=== PATIENT | female | born 1945 | race Caucasian/White ===

== ENCOUNTER → 2022-08-05 11:25 | Outpatient (CLI) | payer OTHER, SELFPAY ==
[2022-08-05 12:42] LABS: COVID19 -Nasal RAPID Negative (Negative)
== END ==
PROVIDERS: PCP Internal Medicine; Referring Provider Orthopaedic Surgery Orthopaedic Surgery of the Spine; Visit Provider Orthopaedic Surgery Orthopaedic Surgery of the Spine
DX: Z20.822 Contact with and (suspected) exposure to COVID-19 (principal)
CPT/HCPCS: 87635; C9803

== ENCOUNTER 2022-08-07 07:24 | Inpatient (IN) | payer OTHER, SELFPAY ==
[2022-08-05 09:58] VITALS: BMI 28.3
[2022-08-07] VITALS (24 sets, daily range): BP systolic 118–154; BP diastolic 56–85; PULSE 61–104; RESP 7–100; TEMP 35.7–36.9; O2SAT 5–100; BMI 28.3
[2022-08-07] MEDS: LACTATED RINGERS 1,000 ML 84 ML IV ×2 (08:14→10:46)
--- NOTE | 2022-08-07 08:42 | PM.PREOP ---
Pre-operative Note COVID-19 COVID-19 status: Negative Result date/Date tested (Pos, Neg/Pending): 08/06/22 Criteria for continued procedure: Expected advancement of disease process, Possibility delay results in more complex future surgery or treatment, Increased loss of function, Continuing or worsening of significant or severe pain, Deterioration of the patient's condition or overall health and Delay expected to result in less-positive ultimate med/surg outcome Interval Note History & Physical reviewed/Exam performed by Physician: Yes Changes to H&P: No
[2022-08-07] MEDS: CEFAZOLIN 2 GM/100 ML PREMIX 100 ML IV ×2 (08:50→16:31)
--- NOTE | 2022-08-07 09:09 | SUR.OPER ---
Prone on spine table, head in foam head support, padded chest and pelvic supports, gel pad at knees, lower legs supported by pillows; nipples, genitalia and toes free of pressure, arms secured on foam padded arm boards at <90 degrees abduction. Tape over blanket at thigh secured to table. Pt positioned per direction and supervision of Dr Larson.
[2022-08-07] MEDS: BUPIVACAINE 0.5% W/ EPI (PF) 30 ML VIAL INJ (09:13)
[2022-08-07] MEDS: BUPIVACAINE LIPOSOME 266 MG/20 ML VIAL INJ (09:13)
--- NOTE | 2022-08-07 12:09 | DI.RAD.S_ITS ---
PROCEDURE: XR LUMBAR SPINE 2-3V INDICATIONS: L4-L5 TLIF TECHNIQUE: 3 views of the lumbar spine were acquired. COMPARISON: [facility], CT, CT LUMBAR SPINE WITHOUT CONTRAST, 07/09/2022, 11:11. [facility], CR, L-SPINE 2-3 VIEWS, 04/17/2017, 8:37. FINDINGS: L3-S1 pedicle screw fixation with intervertebral body spacers. New pedicle screws at L3. Hardware projects in the expected locations. IMPRESSION: Intraoperative guidance provided. Dictated by: Ten Barnard M.D. on 08/07/2022 at 13:26 Approved by: Ten Barnard M.D. on 08/07/2022 at 13:30
--- NOTE | 2022-08-07 12:27 | P.OP_ITS ---
Operative Date/Time/Diagnoses Date of procedure: 08/07/22 Time of procedure: 08:40 Pre-op diagnosis: 1. L3-4 spinal stenosis with neurogenic claudication 2. History of L4-S1 fusion with instrumentation Post-op diagnosis: same Procedure & Clinicians Procedure: 1. L3-4 posterolateral and posterior interbody fusion 2. L3-4 posterior interbody cage placement 3. L4-5, L5-S1 posterior segmental instrumentation removal 4. L4-5, L5-S1 revision laminectomy with exploration of fusion 5. L3-4, L4-5, L5-S1 posterior segmental instrumentation with pedicle screw placement 6. L4-5 posterolatearl fusion 7. [place] of bone marrow from iliac crest through a separate incision 8. Utilization of microsurgical technique and operating microscope Same procedure as scheduled: Yes Indications: Patient has been having chronic back pain and worsening lumbar radiculopathy and symptoms of neurogenic claudication. Patient failed multiple conservative management with worsening pain weakness and numbness in her lower extremity. Patient has been having difficulty performing activity of daily living. After discussing risks benefits of treatment options, patient elected proceed with surgery. Surgeon: Ashlyn Larson Papier Mache' Molder: Britt Corado Click Yes if Unassisted: No Anesthesia Type: General Operative Notes Closure Type: primary Specimen(s): none sent Prosthetic devices, grafts, tissues, transplants, or devices: Globus revolve screws, Rise cage Applied: catheter Estimated Blood Loss (mL): 100 Blood products transfused: none Procedure in detail: Patient was seen in the preoperative area. Risks and benefits of the surgery was discussed with the patient. Informed consent was obtained from the patient and placed in the chart. Surgical site was marked. Patient was taken to the operative room. General anesthesia was administered. Prophylactic antibiotic was given to the patient less than 30 min before the incision was made. Patient was placed into a prone position on the Rajan table. Patient's back was then prepped and draped in the sterile fashion. Time-out was performed at this time. Using patient's previous scar incision was made over the L3-4 L4-5 L5-S1 interval on the right side. Fascia was incised in line with skin incision. Patient's previously placed hardware over the L4-5, L5-S1 level was identified by dissecting down to the level the hardware using a Bovie and a Moore. The locking caps which was removed using [employer] screwdriver. The locking mary was then removed from the tulips of the pedicle screws using a Teto. The pedicle screws were then removed using the screwdriver. The screws were all found to be loose indicating pseudoarthrosis. The Globus and MARS retractors was then placed into the wound and docked onto the L3 lamina using C-arm guidance. Using microsurgical technique and operating microscope a laminectomy facetectomy was performed by removing the L3 lamina and the L3-4 facet. The disc space at L3-4 level was identified next. And a total diskectomy was performed at L3-4 level. The endplates were decorticated using a rasp and shaver. The total diskectomy and decortication was performed at L3-4 level in order to to accomplish a L3-4 fusion. The local bone from the laminectomy and facetectomy was saved for local bone grafting. After the total diskectomy and decortication was completed, Trifecta bone graft material was combined with local bone that was harvested earlier along with DBM bone graft. At this time, a separate skin is incision was made over the iliac crest. A Jamshidi needle was inserted into the iliac crest through a separate skin inc ision. 5 cc of bone marrow aspiration was obtained through the separate skin incision using a Jamshidi needle from the iliac crest. The bone marrow aspiration was combined with local bone and the Trifecta bone grafting material. The bone grafting material was placed into the L3-4 interbody space along with a expandable cage. The cage was expanded to its maximum height using the torque limiting screwdriver. At this time a mirror image incision was made on the left side. The fascia was incised in line with the skin incision. Patient's previously placed hardware on the right side was then removed in the same fashion as it was on the left side. The hardware was also found to be loose indicating pseudoarthrosis. The fusion mass on the right side was exposed by performing a right-sided hemilaminectomy at L4-5 L5-S1 level. The hemilaminectomy was performed using the Kerrison rongeur to undercut the lamina at L4-5 L5-S1 as well removing additional epidural scar tissue for purpose of decompressing the epidural space. The fusion mass was explored and was found have visible motion indicating pseudoarthrosis at L4-5 level and the L5-S1 has solid fusion. Globus MARS retractor was inserted and docked onto the L3-4 L4-5 posterolateral gutter. Using the power drill, posterior-lateral decortication was performed at L3-4 L4-5 level until bleeding cortical bone was identified. The remaining bone grafting material was placed into the L3-4 L4-5 posterior lateral gutter he order to accomplish posterolateral fusion at the L3-4 L4-5 level. Using the double C-arm technique, pedicle screws were placed into the L3, L4-L5 and S1 pedicles bilaterally. This was done by placing the Jamshidi needle into the pedicles, then placing the guidewires over the Jamshidi needle, and finally placing the cannulated screws over the guidewires bilaterally. After the pedicle screws were placed, 2 titanium rods was locked into the heads of the pedicle screws using locking caps and torque limiting screwdriver. All new pedicle screws has good purchase. After all the hardware was placed, and confirmed with AP and lateral C-arm imaging, the wound was then irrigated with sterile normal saline and packed with Ray-Yrn gauze for 3 min to accomplish hemostasis. After the gauze was removed the deep fascia was closed with #1 Vicryl suture. The subcutaneous layer was closed with 2-0 Vicryl. The skin was closed with skin asha. Patient tolerated the procedure well. There were no complications. Neuro monitoring was performed throughout the procedure which was stable throughout the procedure. Pedicle screws were tested using the neuro monitoring probe which were all tested above 20 milliamps. Complications: none Post-operative Condition: stable Disposition: PACU Plan for aftercare: Admit to inpatient hospital
[2022-08-07] MEDS: HYDROMORPHONE 2 MG INJ IV ×3 (12:34→12:59)
[2022-08-07] MEDS: ONDANSETRON 4 MG/2 ML INJ IV ×2 (12:37→17:06)
[2022-08-07] MEDS: OXYCODONE/ACETAMINOPHEN 5/325 TABLET 1 TAB PO (13:23)
[2022-08-07] MEDS: SODIUM CHLORIDE 0.9% 1,000 ML 100 ML IV (14:57)
[2022-08-07] MEDS: lisinopriL 20 MG TABLET 40 MG PO (14:57)
[2022-08-07] MEDS: OXYCODONE IR 5 MG TABLET 10 MG PO ×3 (16:31→23:00)
--- NOTE | 2022-08-07 16:40 | PT.IIE ---
Current Diagnoses Spinal stenosis, lumbar region with neurogenic claudication (08/07/22) Arthrodesis status (08/07/22) Surgery Performed Operation Date: 08/07/22 08:45 Actual Procedures p L3-4 TLIF, L3-S1 PSF w. instrumentation(Not Applicable) - Ashlyn Larson MD Surgical History (Last Updated 08/05/22 @ 10:10 by Olamide Matthew, RN) History of bilateral tubal ligation Hx of bilateral cataract extraction Hx of eye surgery Medical History (Last Updated 08/05/22 @ 10:10 by Olamide Matthew RN) Migraines Pre-diabetes Physical Therapy Inpatient Evaluation/Re-Eval M1 PT/OT-IP Prior Functional Status Start: 08/07/22 18:36 Freq: NEEDED Status: Active Protocol: Document 08/07/22 16:40 AB (Rec: 08/07/22 18:49 AB [id number]) Medical Review Prior Functional Status Medical History Reviewed Yes Communication able to make needs known Mobility and Gait pt stated that she is independent with all mobilities and ambulation without AD Social History Household Members none Living Arrangements House Number of Floors (Floors) One Floor Number of Stairs To Enter/Railing? no steps to enter Home Environment High Toilet,Walk in Shower, Built-In Shower Seat Home Equipment Front Wheel Walker,Straight Cane,Hand Held Shower Additional Social History Comment pt's daughter will be staying with pt for at least 2 weeks to assist her has R side bed rail M2 PT-IP Current Condition Start: 08/07/22 18:36 Freq: NEEDED Status: Active Protocol: Document 08/07/22 16:40 AB (Rec: 08/07/22 18:49 AB [email or web address]) Physical Therapy Current Condition Current Condition Evaluation Date 08/07/22 Treatment Diagnosis s/p L3-4, L4-5, L5S1 instrum/ screw placement; TLIF; difficulty in walking Onset Date 08/07/22 M3 PT-IP Subjective Start: 08/07/22 18:36 Freq: NEEDED Status: Active Protocol: Document 08/07/22 16:40 AB (Rec: 08/07/22 18:49 AB [email or web address]) Subjective Physical Therapy Visit Type Type Initial Evaluation Visit Start Time 16:40 Visit Stop Time 17:15 Total Visit Minutes 35 Number of ORANGE GROWER Visits 0 Physical Therapy Visit Comments Patient Comments agreeable to do PT Therapy Pain Assessment Pain When Pain Assessed At Rest Pain Present Pain Present Pain Reported Location back Intensity 6 Scale Used Numeric (0 - 10) Pain Management Techniques Distraction,Modification of Treatment,Re-positioning, Timing of Activity with Medications M4 PT-IP Mobility and Gait Start: 08/07/22 18:36 Freq: NEEDED Status: Active Protocol: Document 08/07/22 16:40 AB (Rec: 08/07/22 18:49 AB [email or web address]) PT-Bed Mobility Assessment Rolling Type of Rolling Log Rolling Level of Assist Moderate Assistance Supine to Sit Supine to Sit Maximum Assistance,Bedrails Sit to Supine Sit to Supine Maximum Assistance,1 Person Assistance,Bedrails PT-Transfer Assessment Sit to and From Stand Sit to and from Stand Moderate Assistance,Maximum Assistance,1 Person Assistance ,Use of Upper Extremities Equipment Transfer Assistive Device Bed Rail,Front Wheeled Walker Orthotic/Prosthetic Devices or Brace: No Comments Mobility Comments educated pt and daughter regarding back precautions and log roll bed mobility. completed supine to sit max A and max cues. able to sit on EOB initial mod A but SBA after repositioning. c/o back pain. completed sit to stand mod to max A and max cues. pt stated that she will not be able to walk. instructed pt to take side steps towards HOB and completed using FWW mod to max A and max cues. pt sat on EOB. c/o nausea. BP checked: 139/80. nurse aware of nausea. pt completed sit to supine max A and max cues. positioned pt in bed. call light and table placed within reach. pt's daughter will be staying with pt in room for the night and agreeable to do caregiver training when appropriate. Gait Assessment Comments Gait Comments able to take side steps towards HOB using FWW mod to max A PT-Balance Assessment Sitting Balance and Reactions Static Sitting Balance Ability Good Dynamic Sitting Balance Ability Fair Standing Balance and Reactions Static Standing Balance Ability Poor Dynamic Standing Balance Ability Poor Device Used FWW M5 PT-IP Objective Assessments Start: 08/07/22 18:36 Freq: NEEDED Status: Active Protocol: Document 08/07/22 16:40 AB (Rec: 08/07/22 18:49 AB [email or web address]) Orientation Orientation/Cognition Level of Alertness Alert Orientation Name,Place,Situation Language Function Ability No Deficits Noted Safety Awareness Decreased Safety Awareness Memory Description Short Term Impaired Gross Range of Motion Lower Extremity ROM Assessment Within Functional Limits Strength Lower Extremity Strength Hip 4-/5 Knee 4-/5 Sensation Assessment Sensation Gross Sensation WNL Muscle Tone Muscle Tone WNL Yes M6 PT-IP Treatment Start: 08/07/22 18:36 Freq: NEEDED Status: Active Protocol: Document 08/07/22 16:40 AB (Rec: 08/07/22 18:49 AB [email or web address]) Physical Therapy Treatment Education Education Provided Precautions,Weight Bearing Status,Post-Op Packet,Safety M7 PT-IP Assessment and Plan Start: 08/07/22 18:36 Freq: NEEDED Status: Active Protocol: Document 08/07/22 16:40 AB (Rec: 08/07/22 18:49 AB [email or web address]) PT Summary Assessment and Plan Potential Rehabilitation Potential Fair Status of Condition at Evaluation Evolving Summary Impairments Pain,ROM,Strength,Balance, Coordination,Sensation,Tone, Cognition,Bed Mobility, Transfers,Gait,Activity Tolerance Assessment Summary pt s/p TLIF/instrumentation with screw placement L3-S1 and just had surgery today. pt plans to go home with daughter to assist but pt at this time is requiring mod to max A with mobility using FWW and will require 24/ assist. d/c plan depending on progress and caregiver training will be conducted when appropriate. Goals Bed Mobility Goal Standby Assistance Transfer Goal Standby Assistance,Front Wheeled Walker Gait Goal Standby Assistance,Front Wheel Walker Gait Distance 150 Days to Meet Goals 5 Frequency of Treatment Frequency Of Treatment Twice a Day Treatment Plan Physical Therapy Treatment Plan Bed Mobility Training,Transfer Training,Gait Training, Therapeutic Exercise,Balance Retraining,Post Op Education, Discharge Planning,Hot or Cold Pack,Neuromuscular Re-ed, Coordination Retraining,Manual Therapy Precautions Lumbar Precautions Log Roll,No Twisting,Limit Bending,Lifting Restriction of 10 lbs,Gait Belt above Incisional Area Recommendations To Nursing Amount of Assist Needed 1 Person Assist Discharge Recommendations PT Discharge Recommendations Home vs SNF Equipment Needed for Home Before FWW Discharge Transportation Needs at Discharge Private Vehicle,Wheelchair/ Cabulance
[2022-08-07] MEDS: SENNOSIDES 8.6 MG TABLET 17.2 MG PO (20:06)
[2022-08-07] MEDS: DOCUSATE 100 MG CAPSULE PO (20:06)
[2022-08-07] MEDS: hydrOXYzine pamoate 25 MG CAPSULE PO (23:00)
[2022-08-08] MEDS: CEFAZOLIN 2 GM/100 ML PREMIX 100 ML IV (00:27)
[2022-08-08] MEDS: OXYCODONE IR 5 MG TABLET 10 MG PO ×7 (02:33→21:12)
[2022-08-08 03:50] VITALS: BP 92/45; PULSE 80; RESP 17; TEMP 37; O2SAT 91
[2022-08-08] MEDS: hydrOXYzine pamoate 25 MG CAPSULE PO ×3 (05:34→21:13)
[2022-08-08] MEDS: PANTOPRAZOLE DR 20 MG TABLET PO (05:34)
[2022-08-08 05:53] LABS: Hematocrit 34.1 % (36-46); Hemoglobin 11.4 g/dL (12.0-16.0)
--- NOTE | 2022-08-08 06:24 | PM.PNPO.1 ---
Subjective Subjective Date Patient Seen: 08/08/22 Time Patient Seen: 06:24 Interval history: Pt lying in bed on right side, c/o back pain, denies leg pain. Worked w/ PT yesterday, who felt she needed 24 home assist vs SNF. Daughter in room and would like to take pt home, but only if appropriate progress w/ PT. Waldrop catheter still in at this time. Exam Vital Signs (past 8 hours): - 08/07/22 23:05 08/08/22 03:50 Temperature 98.1 F 98.6 F Pulse Rate 61 80 Respiratory Rate 19 17 Blood Pressure 154/76 H 92/45 L Pulse Oximetry 97 91 Oxygen Flow Rate 0 2 Oxygen Delivery Method Room Air Oxygen Flow Rate 2 Narrative Exam Narrative: 5/5 strength in hip flexors, quadriceps, hamstrings, DF, PF, EHL bilaterally. Sensation to light touch intact throughout BLE. Calves soft, compressible, nontender and without palpable cords or masses. Dressing placed intraoperatively is CDI. Objective Labs Result Diagrams: 08/08/22 05:28 Labs: Laboratory Results - last 24 hr 08/08/22 05:28 Hgb 11.4 L Hct 34.1 L PFSH Medical History (Updated 08/08/22 @ 07:40 by Audrey Temple PA-C) Migraines Pre-diabetes Surgical History (Updated 08/05/22 @ 10:10 by Olamide Matthew RN) History of bilateral tubal ligation Hx of bilateral cataract extraction Hx of eye surgery Social History household members: none Smoking Status: Never smoker alcohol intake: never Assessment & Plan Post-op Assessment and plan (1) S/P lumbar fusion: Assessment and Plan narrative: D/c waldrop. Continue work w/ PT with goal of going home with family tomorrow or Friday. (2) Acute postoperative anemia due to expected blood loss: Assessment and Plan narrative: Low BP overnight but otherwise asymptomatic, making adequate urine, HR WNL. No intervention needed at this time. Postoperative Procedures: Procedures Operation Date: 08/07/22 08:45 Actual Procedure Side Surgeon p L3-4 TLIF, L3-S1 PSF w. instrumentation Not Applicable Ashlyn Larson MD Postoperative day: 1 Quality VTE Deep Vein Thrombosis/Pulmonary Embolism Present on Admission: No
[2022-08-08] MEDS: hydroCHLOROthiazide 25 MG TABLET PO (08:14)
[2022-08-08] MEDS: DOCUSATE 100 MG CAPSULE PO ×2 (08:15→21:13)
[2022-08-08] MEDS: AMLODIPINE 5 MG TABLET PO (08:15)
[2022-08-08] MEDS: CALCIUM CARBONATE 600 MG TABLET PO (08:15)
[2022-08-08] MEDS: ASCORBIC ACID 500 MG TABLET PO (08:15)
[2022-08-08] MEDS: MULTIVITAMIN 1 TABLET 1 TAB PO (08:16)
[2022-08-08 08:25] VITALS: BP 112/50
--- NOTE | 2022-08-08 09:44 | OT.IP.EVAL ---
Current Diagnoses Acute posthemorrhagic anemia (08/07/22) Spinal stenosis, lumbar region with neurogenic claudication (08/07/22) Arthrodesis status (08/07/22) Surgery Performed Operation Date: 08/07/22 08:45 Actual Procedures p L3-4 TLIF, L3-S1 PSF w. instrumentation(Not Applicable) - Ashlyn Larson MD Past Medical History (Last Updated 08/05/22 @ 10:10 by Olamide Matthew, RN) Migraines Pre-diabetes Surgical History (Last Updated 08/05/22 @ 10:10 by Olamide Matthew RN) History of bilateral tubal ligation Hx of bilateral cataract extraction Hx of eye surgery Occupational Therapy Inpatient Evaluation/Re-Eval M1 PT/OT-IP Prior Functional Status Start: 08/07/22 18:36 Freq: NEEDED Status: Active Protocol: Document 08/08/22 09:13 [facility] (Rec: 08/08/22 13:54 [facility] [id number]) Medical Review Prior Functional Status Medical History Reviewed Yes Communication able to make needs known Mobility and Gait pt stated that she is independent with all mobilities and ambulation without AD Activities of Daily Living and IADL's Pt needing increased time for ADl and IADL needs due to back pain. Social History Household Members none Living Arrangements House Number of Floors (Floors) One Floor Number of Stairs To Enter/Railing? no steps to enter Home Environment High Toilet,Walk in Shower, Built-In Shower Seat Home Equipment Front Wheel Walker,Straight Cane,Bedside Commode,Hand Held Shower,Long Handled Shoe Horn Additional Social History Comment pt's daughter will be staying with pt for at least 2 weeks to assist her has R side bed rail M2 OT-IP Current Condition Start: 08/08/22 13:34 Freq: Status: Active Protocol: Document 08/08/22 09:13 [facility] (Rec: 08/08/22 13:54 [facility] [id number]) Occupational Therapy Current Condition Current Condition Evaluation Date 08/08/22 Treatment Diagnosis S/p L3-4, L3-S1 PSF Diagnosis Onset Date 08/07/22 Post Operative Precautions Lumbar Precautions Log Roll,No Twisting,Limit Bending,Lifting Restriction of 10 lbs,Gait Belt above Incisional Area M3 OT- IP Subjective and Pain Start: 08/08/22 13:34 Freq: Status: Active Protocol: Document 08/08/22 09:13 [facility] (Rec: 08/08/22 13:54 [facility] [id number]) OT- Subjective Occupational Therapy Visit Type Type Initial Evaluation Visit Start Time 09:13 Visit Stop Time 09:44 Total Visit Minutes 31 Occupational Therapy Visit Comments Patient Comments Pt wanting to get back to bed. Patient/Caregiver Goals To go home OT Pain Assessment Pain When Pain Assessed At Rest Pain Present Pain Present Pain Reported Location back Intensity 4 Scale Used Numeric (0 - 10) M4 OT- IP ADL's Start: 08/08/22 13:34 Freq: Status: Active Protocol: Document 08/08/22 09:13 [facility] (Rec: 08/08/22 13:54 [facility] [id number]) OT [id number] Comments OT Self-Feeding Comments Not at meal time OT ADL-Grooming General Evaluation Grooming Ability Standby Assistance Areas Needing Assistance Retrieving/Set-up of Grooming Items Comments OT Grooming Comments Pt having to lean on the counter for her balance and able to do grooming needs with the FWW in front of her. OT ADL-Oral Care General Eval Oral Care Ability Standby Assistance Comments Oral Care Comments Able to do while standing and initial vc to spit into a cup to best follow her back precautions. OT ADL-Dressing General Eval Lower Body Dressing Ability Maximum Assistance Comments OT Dressing Comments Able to practice use of sock aid and rectifying attendant and pt able to show good demonstration. OT ADL-Toileting General Evaluation Toileting Ability Standby Assistance Areas Needing Assistance Manage Clothing Comments OT Toileting Comments Pt able to reach appropriately and suggested to use wet wipe and pads/brief so not having to guerrero to the bathroom as night in addition pt goes to the bathroom often at night as well. Pt will need some assist for balance when pulling up her clothing after toileting needs. OT ADL-Bathing Comments OT Bathing Comments Not performed. To try tomorrow . M5 OT- IP IADL's Start: 08/08/22 13:34 Freq: Status: Active Protocol: Document 08/08/22 09:13 [facility] (Rec: 08/08/22 13:54 [facility] [id number]) OT-Instrumental Activities of Daily Living Deficits IADL Deficits Identified Deficits Home Safety Awareness Awareness of Need for Assistance at Home Good Awareness Home Safety Comments Pt a little groggy and needing reminders for her back precautions. Pt has a supportive daughter to assist her. Medication Management Medication Management Comments Pt a little groggy and needing reminders for her back precautions. Pt has a supportive daughter to assist her. Money Management Money Management Comments Pt a little groggy and needing reminders for her back precautions. Pt has a supportive daughter to assist her. Meal Preparation Meal Preparation No Deficits Identified Engine Pilot Engine Pilot No Deficits Identified M6 OT- IP Functional Cognition Start: 08/08/22 13:34 Freq: Status: Active Protocol: Document 08/08/22 09:13 [facility] (Rec: 08/08/22 13:54 [facility] [id number]) Cognitive Factors Limiting Selfcare Function Cognitive Ability Level of Alertness Alert,Drowsy Patient Orientation Name,Place,Situation Attention Span Ability Capable of Focused Attention, Capable of Sustained Attention Ability to Follow Commands Able to Follow One Step Commands with Increased Time, Able to Follow One Step Commands with Repetition Safety Awareness Decreased Recall of Precautions,Decreased Ability to Apply Precautions Cognitive Comments Cognitive Assessment Comments Pt needing reminders for her back precautions. FWW safety and to be sure to push up with her hands on the surface sitting from and also to reach back before sitting down. OT- Vision and Hearing OT- Vision Assessment Visual Acuity Glasses All The Time M7 OT- IP Mobility and Balance Start: 08/08/22 13:34 Freq: Status: Active Protocol: Document 08/08/22 09:13 [facility] (Rec: 08/08/22 13:54 [facility] [id number]) OT- Bed Mobility Assessment Sit to Supine Sit to Supine Assist Minimal Assistance OT-Transfer Assessment Sit to and From Stand Sit to and from Stand Minimal Assistance Transfers Transfer Ability Minimal Assistance Technique Transfer Destination Bed,Chair,Toilet Transfer Technique Stand Step Pivot Devices Transfer Assistive Devices Gait Belt,Front Wheeled Walker Comments Mobility Comments KATHI to stand and vc to be sure to no stop while coming to stand. KATHI with FWW as pt tend so lean posteriorly and to the left as times. Pt's daughter able to burton/doff the gait belt and able to assist pt with the transfer to the bed and chair. OT- Balance Assessment Sitting Balance and Reactions Static Sitting Balance Ability Good Dynamic Sitting Balance Ability Fair Standing Balance and Reactions Static Standing Balance Ability Fair Dynamic Standing Balance Ability Poor M9 OT- IP Assessment and Plan Start: 08/08/22 13:34 Freq: Status: Active Protocol: Document 08/08/22 09:13 [facility] (Rec: 08/08/22 13:54 [facility] [id number]) OT Summary Assessment and Plan Potential Rehabilitation Potential Good Analytic Complexity at Evaluation Low Summary OT Impairments Pain,Balance,Functional Cognition,Functional Mobility, Grooming,Dressing,Toileting, Bathing,Toilet Transfers, Shower Transfers,Activity Tolerance Progress Towards Goals Progressing Toward Goals Assessment Summary Pt low complexity and main barriers are pain, decreased dynamic balance as tends to lean into posterior tilt and to the left when on her feet, and now needing one person assist for ADl and mobility needs. Pt's daughter able to initiate caregiver training for ADl and mobility needs. Pt to go home with assist when medically stable. Goals Grooming Goal Independent Dressing Goal Independent Toileting Goal Independent Bathing Goal Independent Toilet Transfer Goal Independent Shower Transfer Goal Independent Patient/Caregiver Education Goal Caregiver Independent Assisting Patient Days to Meet Goals 7 Frequency of Treatment Frequency Of Treatment Once a Day Treatment Plan OT Treatment Plan ADL Training,Functional Mobility,Patient/Family Education,Discharge Planning Other Treatment Recommendations and Next shower Treatment Focus Discharge Recommendations OT Discharge Recommendations Home with 10/02 Assist Available Home Equipment Needs shower chair Transportation Needs at Discharge Private Vehicle
--- NOTE | 2022-08-08 11:23 | PT.IPTN ---
Current Diagnoses Acute posthemorrhagic anemia (08/07/22) Spinal stenosis, lumbar region with neurogenic claudication (08/07/22) Arthrodesis status (08/07/22) Surgery Performed Operation Date: 08/07/22 08:45 Actual Procedures p L3-4 TLIF, L3-S1 PSF w. instrumentation(Not Applicable) - Ashlyn Lasron MD Physical Therapy Treatment Note M2 PT-IP Current Condition Start: 08/07/22 18:36 Freq: NEEDED Status: Active Protocol: Document 08/08/22 10:47 [facility] (Rec: 08/08/22 17:46 SP [id number]) Physical Therapy Current Condition Current Condition Evaluation Date 08/07/22 Treatment Diagnosis s/p L3-4, L4-5, L5S1 instrum/ screw placement; TLIF; difficulty in walking Onset Date 08/07/22 M3 PT-IP Subjective Start: 08/07/22 18:36 Freq: NEEDED Status: Active Protocol: Document 08/08/22 10:47 SP (Rec: 08/08/22 17:46 SP [id number]) Subjective Physical Therapy Visit Type Type Treatment Note Visit Start Time 10:47 Visit Stop Time 11:23 Total Visit Minutes 36 Notes Vitals: L sidelying LUE automated: BP 93/39 HR 81 SaO2 95% Seated BP improved seated, not written down. Daughter in room, initiated CGT including donning GB, providing physical support throughout tx. Number of DYE HOUSE WORKER Visits 1 Physical Therapy Visit Comments Patient Comments agreeable to do PT Patient Goals Return home with daughter to assist her 10/02 when pain more controlled. Therapy Pain Assessment Pain When Pain Assessed During Mobility Pain Present Pain Present Pain Reported Location back Intensity 4 Scale Used 3/10 at rest, 4/10 with mobility. Description With Movement Pain Behaviors Facial Grimacing,Guarding Pain Management Techniques Distraction,Modification of Treatment,Re-positioning, Timing of Activity with Medications M4 PT-IP Mobility and Gait Start: 08/07/22 18:36 Freq: NEEDED Status: Active Protocol: Document 08/08/22 10:47 SP (Rec: 08/08/22 18:39 SP [id number]) PT-Bed Mobility Assessment Supine to Sit Supine to Sit Minimal Assistance,Moderate Assistance,1 Person Assistance ,Bedrails Scooting Scooting to Edge of Bed Contact Guard Assistance, Minimal Assistance PT-Transfer Assessment Sit to and From Stand Sit to and from Stand Minimal Assistance,Moderate Assistance,1 Person Assistance ,Use of Upper Extremities Equipment Transfer Assistive Device Gait Belt,Front Wheeled Walker Orthotic/Prosthetic Devices or Brace: No Transfers Transfer Destination Chair,Toilet Transfer Technique pt ambulated w/ FWW Transfer Ability Level of Assist Contact Guard Assistance, Minimal Assistance,1 Person Assistance,Use of Upper Extremities Comments Mobility Comments Completed L SL>sit Min/Mod A support for trunk righting. Scoot EOB CG/Min A. Daughter donned gait belt seated EOB, Min pt BUE support on bed for trunk stability CGA safety. STS Min/ Mod A x1 to come to standing,cues for push with 1 UE off bed other on FWW. Gait across bathroom CG/ MIn A w/ FWW, cued abdominal and forward upper alignment to allow eccentric LE advancement landing control, improved. Pt complete pivot bathroom, cued back up completely use grab bar, slow descend sit CG/Min A via daugher. Pt able to void and self pericare seated. STS CGA/ Min A, gait to sink w/ FWW CGA/ Min A, slight retro sways self grasp sink for stability. Pt gait to chair, cued step back fully with FWW completely and proper hand placement slow descent and scoot back. Pt had call light and all needs in reach before left. Daughter in room. Gait Assessment Gait Gait Assistance Required: Contact Guard Assist,Minimum Assistance,1 Person Assist Distance (Feet) 23 Able to Maintain Weight Bearing Status Yes During Gait Assistive Devices Assistive Device Gait Belt,Front Wheeled Walker Orthotic/Prosthetic Devices or Brace: No Gait Deviations General Gait Pattern Antalgic,Decreased Stride Length,Decreased Feet Clearance,Lateral Trunk Lean, Step-to Gait Factors Limiting Gait Function Factors Limiting Gait Function Decreased Activity Tolerance, Decreased Strength,Difficulty Following Directions,Limited Range of Motion,Pain,Poor Balance,Poor Safety Awareness Comments Gait Comments Cued gentle abdominal bracing with forward upper body COG over KIMI, soft eccentric stepping advancement to allow decrease little retro lean and lateral sways. Stair Climbing Assessment Comments Stair Climbing Comments no stair need to assess PT-Balance Assessment Sitting Balance and Reactions Static Sitting Balance Ability Good Dynamic Sitting Balance Ability Fair Standing Balance and Reactions Static Standing Balance Ability Fair Dynamic Standing Balance Ability Poor Device Used FWW Functional Assessments Other Functional Tests Performed Once in standing, instructed wt shifts between BLEs, little march pre gait assessment, CG / MIn A w/ FWW. M5 PT-IP Objective Assessments Start: 08/07/22 18:36 Freq: NEEDED Status: Active Protocol: Document 08/07/22 16:40 AB (Rec: 08/07/22 18:49 AB [id number]) Orientation Orientation/Cognition Level of Alertness Alert Orientation Name,Place,Situation Language Function Ability No Deficits Noted Safety Awareness Decreased Safety Awareness Memory Description Short Term Impaired Gross Range of Motion Lower Extremity ROM Assessment Within Functional Limits Strength Lower Extremity Strength Hip 4-/5 Knee 4-/5 Sensation Assessment Sensation Gross Sensation WNL Muscle Tone Muscle Tone WNL Yes M6 PT-IP Treatment Start: 08/07/22 18:36 Freq: NEEDED Status: Active Protocol: Document 08/08/22 10:47 SP (Rec: 08/08/22 17:46 SP [id number]) Physical Therapy Treatment Education Education Provided Precautions,Weight Bearing Status,Post-Op Packet,Safety Other Treatments Other Treatment Performed Ed for breath, use of UEs on bed and may need to complete gentle abdominal bracing to support back and pain control during mobility. M7 PT-IP Assessment and Plan Start: 08/07/22 18:36 Freq: NEEDED Status: Active Protocol: Document 08/08/22 10:47 SP (Rec: 08/08/22 17:46 SP [id number]) PT Summary Assessment and Plan Potential Rehabilitation Potential Fair Status of Condition at Evaluation Evolving Summary Impairments Pain,ROM,Strength,Balance, Coordination,Sensation,Tone, Cognition,Bed Mobility, Transfers,Gait,Activity Tolerance Progress Towards Goals Slow Progress due to Pain,Slow Progress due to Medical Issues,Slow Progress due to Activity Tolerance Assessment Summary Pt good recall to precautions, continues to have challenge with pain control. Pt requires Mod x1 for R SL>sit, Min A for STS and demonstrates trunk unsteady during gait w/FWW, improvement noted since earlier with OT. Pt having difficulty with pain control and a limiting factor for all mobility. Will assess progress in pm. Recommending HHPT able to return home with daughter when medically stable and pain controlled. Goals Bed Mobility Goal Standby Assistance Transfer Goal Standby Assistance,Front Wheeled Walker Gait Goal Standby Assistance,Front Wheel Walker Gait Distance 150 Days to Meet Goals 5 Frequency of Treatment Frequency Of Treatment Twice a Day Treatment Plan Physical Therapy Treatment Plan Bed Mobility Training,Transfer Training,Gait Training, Therapeutic Exercise,Balance Retraining,Post Op Education, Discharge Planning,Hot or Cold Pack,Neuromuscular Re-ed, Coordination Retraining,Manual Therapy Other Recommendations and Next Treatment bed mob, transfers, gait Focus futher distance w/ FWW, standing balance. Precautions Lumbar Precautions Log Roll,No Twisting,Limit Bending,Lifting Restriction of 10 lbs,Gait Belt above Incisional Area Recommendations To Nursing Amount of Assist Needed 1 Person Assist Discharge Recommendations PT Discharge Recommendations Home with 10/02 Assist Available,Home Health Transportation Needs at Discharge Private Vehicle
--- NOTE | 2022-08-08 12:27 | CM.DANOTE ---
Addendum entered by Patrica Maldonado R.N. 08/08/22 13:43: This CM spoke with pt and reviewed agency's via Tablet. Pt requested [facility]. Referral sent to [place] and f/u with a phone call to [facility] who will be following pt to discharge and is anticipating acceptance. Face to face and orders all sent to [facility]. [facility] will just need a D/C summary upon discharge. Original Note: DCP: Case received EMR reviewed, this RN CM introduced self to patient and was able to obtain information regarding pt's baseline activity level prior to surgery. DCP's assessment completed with information currently available. 77 yo female came in via pov on 08/07/2022 under the care of surgical team and underwent planned lumbar fusion. Pt has hx of spinal stenosis with neurogenic claudication. PCP: Dr. Oswaldo Campa Payer: [facility] Met with pt in her room. She was in her bed eating breakfast. She confirmed that she lives alone in [place] and that she drives at baseline. Pt reports that she did not use DME prior to surgery. Daughter reports that she will be staying with her Mom for the next two weeks. Pt interested in attaining HH to support with care at home s/p discharge. Will review HH agency's with pt via IPAD to support her with attaining a choice. P: Home with daughter with HH. Will go over HH agency's with pt and will send referral once it is determined. Patrica Maldonado RN Case Manager Discharge Planning/Care Management Discharge Assessment Start: 08/08/22 12:20 Freq: Status: Active Protocol: Document 08/08/22 12:21 [facility] (Rec: 08/08/22 12:26 [facility] [id number]) Discharge Planning Assessment Assigned Machinist Instructor Patrica Maldonado RN Case Manager Advance Directives? Yes Advance Directives on File No History Provided By Patient,Medical Record Has Patient been admitted in last 30 No days? Prior Living Arrangements House Household Members none Comment Daughter is currently in town from [facility] and she plans on staying with pt for next 2 wks. Type of transporation used prior to Drives own vehicle admit Independent with ADL's Yes Is patient alert and oriented? Yes Caregiver for Another No Patient/Family Preference Home with Home Health Comment Will review HH agency's with pt. Barriers to Discharge No Discharge Plan Home with Home Health Transportation Arrangement Daughter will provide transportation Referrals Initiated Other Additional Comment Will plan on initiating HH referral once pt chooses agency Has Agency SNF been contacted No Whiteboard Updated in Patient Room with Yes name and ext. # of Machinist Instructor Review Status In Process Next Review Type Continued Stay Review Pre-Anesthesia Assessment Start: 08/05/22 09:58 Freq: Status: Active Protocol: Document 08/05/22 09:58 [facility] (Rec: 08/05/22 10:26 [facility] [id number]) Pre-Anesthesia Assessment Patient Information Reviewed Via Phone Assessment Assessment Completed With Patient Diagnostic Results BMP/CMP,CBC Comment Outside labs scanned, EKG done , not here, COVID screen @ [facility] 08/12/22 Primary Care Provider Oswaldo Campa Seen Specialist in Last 12 Months Yes Specialist Seen Opthamologist/Infection Control Specialist, Orthopedist Primary Language Belgian Kindergartner Required No Height 157.48 cm Weight 70.307 kg Body Mass Index (BMI) 28.3 Hearing Ability Normal Visual Assist Glasses Dentition Type Teeth, Natural Present,Dental Implants Barriers to Learning None Hx Anesthesia Reactions No Hx Family Anesthesia Reaction No Hx Malignant Hyperthermia No Hx Blood Transfusions No Anesthesia Review Requested No Order Make Up Clerk No alcohol intake never Smoking Status Never smoker Substance Use Type does not use Pain Present Pain Reported Musculoskeletal Symptoms Abnormal Gait,Back Pain, Difficulty Walking,Radiating Pain into Limb History of Falling (Recent or History of Yes ) Patient is completely paralyzed or No completely immobile Mental Status Oriented to own ability Is patient on oxygen? No Does patient have CAZARES/SOB No Hx Sleep Apnea No Currently Taking a Beta Madhav No Can You Climb a Flight of Stairs Without Yes SOB Hx Chest Pain No Hx SOB No Hx Syncope or Dizziness No Anti-Coagulant Therapy No Has a Program Director/Traffic Director No Cardiac Testing No Hx Pacemaker/ICD No Pacemaker Rep Required? No Cardiac Clearance Received Not Applicable Diet Type At Home Regular Dysphagia No Gastrointestinal Symptoms None Chronic UTI No Urinary Catheter Present No Hx Urinary Self Catheterization No Diabetes No: Pre-diabetes HgbA1C 5.8 Date 07/16/22 Patient No Lactating No Hx Drug Resistant Organism No Presence of External or Internal Medical Yes: Lumbar hardware, bilat Devices eye IOLs Have you had any close contact with No someone diagnosed with COVID-19? Received a COVID vaccine? Yes Received all doses? Yes Marital Status / Lives With none Current Living Arrangements House Number of Floors (Floors) One Floor Support System Child/Children Does the Patient Have Assistance After Yes: Daughter will stay with Surgery patient @ DC to assist with care Patient Discharge Plan Description Return Home Comment Pt not advised on length of stay per surgeon Feels Safe in Current Environment Yes Been Physically Hurt or Threatened By a No Person in Current Environment Do you have thoughts of harming yourself None or others? Are you currently considering suicide? No Do you have a plan to hurt yourself or No Plan others? Do You Have Any Spiritual Beliefs That No May Affect Your HC Choices? Do You Have Any Cultural Practices That No May Affect Your HC Choices? Comment Baptism Who Can We Speak to About Patient's Care Family, friends Identifying Code for Release of Patient Declines to issue Information Health Care Proxy/Next of Kin Fariba (daughter) Health Care Proxy Emergency Contact Name Fariba (daughter) Sivakumar (son) Emergency Contact Phone Number Fariba: [phone] Sivakumar: [phone] Advance Directives? Yes Advance Directives on File No Requested Patient Bring Advanced Yes Directives DOS Power of Alumni Relations Coordinator Yes Power of Alumni Relations Coordinator Name Sivakumar (son) Power of Alumni Relations Coordinator PAC Instructions Durable medical equipment, Medications to take/avoid, Nasal antibiotic,No ETOH/ petroleum product on skin DOS, NPO,Pre-op antibiotic,Pre- surgical wash,Sensory aids, Sturdy shoes/comfortable clothes,Do not bring valuables and remove jewelry
[2022-08-08 13:00] VITALS: BP 100/40; PULSE 87; RESP 16; O2SAT 96
--- NOTE | 2022-08-08 16:17 | PT.IPTN ---
Current Diagnoses Acute posthemorrhagic anemia (08/07/22) Spinal stenosis, lumbar region with neurogenic claudication (08/07/22) Arthrodesis status (08/07/22) Surgery Performed Operation Date: 08/07/22 08:45 Actual Procedures p L3-4 TLIF, L3-S1 PSF w. instrumentation(Not Applicable) - Ashlyn Larson MD Physical Therapy Treatment Note M2 PT-IP Current Condition Start: 08/07/22 18:36 Freq: NEEDED Status: Active Protocol: Document 08/08/22 15:54 SP (Rec: 08/08/22 19:21 SP [id number]) Physical Therapy Current Condition Current Condition Evaluation Date 08/07/22 Treatment Diagnosis s/p L3-4, L4-5, L5S1 instrum/ screw placement; TLIF; difficulty in walking Onset Date 08/07/22 M3 PT-IP Subjective Start: 08/07/22 18:36 Freq: NEEDED Status: Active Protocol: Document 08/08/22 15:54 SP (Rec: 08/08/22 19:21 SP [id number]) Subjective Physical Therapy Visit Type Type Treatment Note Visit Start Time 15:54 Visit Stop Time 16:17 Total Visit Minutes 23 Notes Daughter complete caregiver training including donning gait belt and any physical assist required. Number of ELECTRON[employer] SECURITY ASSESSMENT Visits 2 Physical Therapy Visit Comments Patient Comments agreeable to do PT Patient Goals Return home with daughter to assist her 10/02 when pain more controlled. Therapy Pain Assessment Pain When Pain Assessed During Mobility Pain Present Pain Present Pain Reported Location back Intensity 5 Scale Used 3/10 at rest, 4/10 with mobility. Description With Movement Pain Behaviors Facial Grimacing,Guarding Pain Management Techniques Distraction,Modification of Treatment,Re-positioning, Timing of Activity with Medications M4 PT-IP Mobility and Gait Start: 08/07/22 18:36 Freq: NEEDED Status: Active Protocol: Document 08/08/22 15:54 SP (Rec: 08/08/22 19:21 SP [id number]) PT-Bed Mobility Assessment Rolling Type of Rolling Log Rolling Level of Assist Moderate Assistance Supine to Sit Supine to Sit Minimal Assistance,1 Person Assistance Sit to Supine Sit to Supine Minimal Assistance,1 Person Assistance,Bedrails Scooting Scooting to Edge of Bed Contact Guard Assistance PT-Transfer Assessment Sit to and From Stand Sit to and from Stand Contact Guard Assistance, Minimal Assistance,1 Person Assistance,Use of Upper Extremities Equipment Transfer Assistive Device Gait Belt,Front Wheeled Walker Orthotic/Prosthetic Devices or Brace: No Transfers Transfer Destination Bed,Toilet Transfer Technique pt ambulated w/ FWW Transfer Ability Level of Assist Contact Guard Assistance, Minimal Assistance,1 Person Assistance,Use of Upper Extremities Comments Mobility Comments Pt L sidesleeping when arrived . Complete LR L Min A with cues for reaching RUE across body to maintain spinal precautions. L SL>sit Min A for trunk righting, scoot EOB CGA. STS CGA-5%A cues for forward trunk/ TA facilitation and push from EOB 1 UE other UE on FWW. Gait to bathroom 8 ft w/FWW CGA little trunk sways but self supported. stand<>sit toilet use grab bar , void/ self pericare, gait w/ FWW to sink 10 ft, washed hands more stable no UE support on sink good positioning. Further distance gait to door and back to R EOB CGA w/ FWW. Gait Assessment Gait Gait Assistance Required: Contact Guard Assist,Minimum Assistance,1 Person Assist Distance (Feet) 35 Able to Maintain Weight Bearing Status Yes During Gait Assistive Devices Assistive Device Gait Belt,Front Wheeled Walker Orthotic/Prosthetic Devices or Brace: No Gait Deviations General Gait Pattern Antalgic,Decreased Stride Length,Decreased Feet Clearance,Lateral Trunk Lean Factors Limiting Gait Function Factors Limiting Gait Function Decreased Activity Tolerance, Decreased Strength,Limited Range of Motion,Pain,Poor Balance Comments Gait Comments See mobility comments Stair Climbing Assessment Comments Stair Climbing Comments no stair need to assess PT-Balance Assessment Sitting Balance and Reactions Static Sitting Balance Ability Good Dynamic Sitting Balance Ability Fair Standing Balance and Reactions Static Standing Balance Ability Fair Dynamic Standing Balance Ability Fair Device Used FWW M5 PT-IP Objective Assessments Start: 08/07/22 18:36 Freq: NEEDED Status: Active Protocol: Document 08/07/22 16:40 AB (Rec: 08/07/22 18:49 AB [id number]) Orientation Orientation/Cognition Level of Alertness Alert Orientation Name,Place,Situation Language Function Ability No Deficits Noted Safety Awareness Decreased Safety Awareness Memory Description Short Term Impaired Gross Range of Motion Lower Extremity ROM Assessment Within Functional Limits Strength Lower Extremity Strength Hip 4-/5 Knee 4-/5 Sensation Assessment Sensation Gross Sensation WNL Muscle Tone Muscle Tone WNL Yes M6 PT-IP Treatment Start: 08/07/22 18:36 Freq: NEEDED Status: Active Protocol: Document 08/08/22 15:54 SP (Rec: 08/08/22 19:21 SP [id number]) Physical Therapy Treatment Education Education Provided Precautions,Safety M7 PT-IP Assessment and Plan Start: 08/07/22 18:36 Freq: NEEDED Status: Active Protocol: Document 08/08/22 15:54 SP (Rec: 08/08/22 19:21 SP [id number]) PT Summary Assessment and Plan Potential Rehabilitation Potential Fair Status of Condition at Evaluation Evolving Summary Impairments Pain,ROM,Strength,Balance, Coordination,Sensation,Tone, Cognition,Bed Mobility, Transfers,Gait,Activity Tolerance Progress Towards Goals Slow Progress due to Pain,Slow Progress due to Activity Tolerance Assessment Summary Min A bed mob, CG-5%A transfers and gait w/ FWW up to 35 ft total. Pt little trunk sways during gait but self recovery. Pt continues to demonstrated limited activity tolerance due to pain. Recommending 10/02 assist of daughter can provide her and HHPT to assist improve strength and functional mobility toward PLOF when pain more controlled and medically cleared. Caregiver training completed. Goals Bed Mobility Goal Standby Assistance Transfer Goal Standby Assistance,Front Wheeled Walker Gait Goal Standby Assistance,Front Wheel Walker Gait Distance 150 Days to Meet Goals 5 Frequency of Treatment Frequency Of Treatment Twice a Day Treatment Plan Physical Therapy Treatment Plan Bed Mobility Training,Transfer Training,Gait Training, Therapeutic Exercise,Balance Retraining,Post Op Education, Discharge Planning,Hot or Cold Pack,Neuromuscular Re-ed, Coordination Retraining,Manual Therapy Other Recommendations and Next Treatment Bed mob, transfers, standing Focus balance, further distance gait w/ FWW. Encourage abdominal facilitaition during mobility. Precautions Lumbar Precautions Log Roll,No Twisting,Limit Bending,Lifting Restriction of 10 lbs,Gait Belt above Incisional Area Recommendations To Nursing Amount of Assist Needed 1 Person Assist Discharge Recommendations PT Discharge Recommendations Home with 24/7 Assist Available,Home Health Transportation Needs at Discharge Private Vehicle
--- NOTE | 2022-08-08 18:19 | PC.NURSE ---
Pt requesting pain meds every 3hr as per ordered for pain 01/27 with fair relief. F/C D/C thjis morning and has voided QS Dsg to back CDI HL RFA intact/patent. Stable post op course. Call light w/in reach, b ed alarm on for pt safety. Continue w/plan of care
[2022-08-08 19:40] VITALS: BP 113/49; PULSE 92; RESP 18; TEMP 37.4; O2SAT 95
[2022-08-08] MEDS: SENNOSIDES 8.6 MG TABLET 17.2 MG PO (21:13)
[2022-08-09 00:50] VITALS: BP 132/62; PULSE 103; RESP 17; TEMP 37.1; O2SAT 92
[2022-08-09] MEDS: hydrOXYzine pamoate 25 MG CAPSULE PO (04:05)
[2022-08-09] MEDS: OXYCODONE IR 5 MG TABLET 10 MG PO ×3 (04:05→10:57)
[2022-08-09 04:20] VITALS: BP 127/62; PULSE 91; RESP 17; TEMP 36.7; O2SAT 91
[2022-08-09] MEDS: PANTOPRAZOLE DR 20 MG TABLET PO (05:43)
--- NOTE | 2022-08-09 06:38 | P.DS_ITS ---
History of Present Illness History of Present Illness Date Patient Seen: 08/09/22 Time Patient Seen: 06:38 Chief complaint: INPT Narrative: Operative Date/Time/Diagnoses Date of procedure: 08/07/22 Time of procedure: 08:40 Pre-op diagnosis: 1. L3-4 spinal stenosis with neurogenic claudication 2. History of L4-S1 fusion with instrumentation Post-op diagnosis: same Procedure & Clinicians Procedure: 1. L3-4 posterolateral and posterior interbody fusion 2. L3-4? posterior interbody cage placement 3. L4-5, L5-S1 posterior segmental instrumentation removal 4. L4-5, L5-S1 revision laminectomy with exploration of fusion 5. L3-4, L4-5, L5-S1 posterior segmental instrumentation with pedicle screw placement 6. L4-5 posterolatearl fusion 7. [place] of bone marrow from iliac crest through a separate incision 8. Utilization of microsurgical technique and operating microscope Same procedure as scheduled: Yes Indications: Patient has been having chronic back pain and worsening lumbar radiculopathy and symptoms of neurogenic claudication. Patient failed multiple conservative management with worsening pain weakness and numbness in her lower extremity.? Patient has been having difficulty performing activity of daily living.? After discussing risks benefits of treatment options, patient elected proceed with surgery. Surgeon: Ashlyn Larson Supervisor Building Maintenance: Britt Corado Click Yes if Unassisted: No Anesthesia Type: General Operative Notes Closure Type: primary Specimen(s): none sent Prosthetic devices, grafts, tissues, transplants, or devices: Globus revolve screws, Rise cage Applied: catheter Estimated Blood Loss (mL): 100 Blood products transfused: none Discharge Providers Provider Date of admission: 08/07/22 07:24 Discharge Date: 08/09/22 Primary care physician: Oswaldo Campa MD Consults: 08/07/22 14:00 Consult to Occupational Therapy Evaluate & Treat Comment: Physician Instructions: Evaluate and treat Consult to Physical Therapy Evaluate & Treat Comment: Physician Instructions: Evaluate and Treat 08/08/22 13:29 Consult to Home Health Routine Comment: Reason For Exam: LILIANA RN, PT/OT, Bath Aide Discharge provider: Audrey Temple PA-C Summary Hospital Course Discharge Diagnosis: Spinal stenosis w/ neurogenic claudication, s/p lumbar fusion Hospital Course: Ms Warner'carmelina hospital course was unremarkable. On the morning of POD# 2 she was feeling well. She complained of back pain but denied LE pain. She was evaluated by PT throughout her stay and felt to be safe for homegoing w/ family and home health. She was eating and voiding without difficulty. Exam Vital Signs (past 8 hours): - 08/09/22 00:50 08/09/22 04:20 Temperature 98.8 F 98.1 F Pulse Rate 103 H 91 H Respiratory Rate 17 17 Blood Pressure 132/62 127/62 Pulse Oximetry 92 91 Oxygen Flow Rate 0 0 Oxygen Delivery Method Room Air Oxygen Flow Rate 0 Narrative Exam Narrative: 5/5 strength in hip flexors, quadriceps, hamstrings, DF, PF, EHL bilaterally. Sensation to light touch intact in BLE. Calves soft, compressible, nontender and without palpable cords or masses. Dressing placed intraoperatively is CDI. Objective Labs Result Diagrams: 08/08/22 05:28 [facility] Medical History (Updated 08/08/22 @ 07:40 by Audrey Temple PA-C) Migraines Pre-diabetes Surgical History (Updated 08/05/22 @ 10:10 by Olamide Matthew RN) History of bilateral tubal ligation Hx of bilateral cataract extraction Hx of eye surgery Social History household members: none Smoking Status: Never smoker alcohol intake: never Discharge Assessment & Plan Assessment and Plan Assessment: Spinal stenosis w/ neurogenic claudication, s/p lumbar fusion Plan of Treatment: Will d/c hydroxyzine and start cyclobenzaprine in the hopes of providing better control of back pain. D/c home w/ family and . F/u as scheduled in office in 2 weeks. Discharge Plan Discharge Plan Patient Disposition: Home Health Service Discharge orders & Medications Prescriptions: New oxycodone 5 mg tablet 5 mg PO Q4H PRN (Reason: pain (scale score 7-10)) Qty: 60 0RF Rx Instructions: 1-2 tabs (5-10 mg) q 4 hrs PRN severe pain docusate sodium 100 mg Capsule 100 mg PO BID PRN (Reason: constipation) Qty: 60 1RF cyclobenzaprine 10 mg Tablet 5 mg PO Q8HR PRN (Reason: Muscle Spasm) Qty: 60 0RF Continued amlodipine [Norvasc] 5 MG tablet 5 mg PO QDAY Qty: 0 hydrochlorothiazide 25 MG tablet 25 mg PO QDAY Qty: 0 lisinopril 40 MG tablet 40 mg PO QDAY Qty: 0 multivitamin [Multiple Vitamins] 1 EACH tablet 1 tab PO QDAY Qty: 0 omeprazole 20 MG tablet,delayed release (DR/EC) 20 mg PO QDAY Qty: 0 omega 3-adb-ovb-fish oil [Fish Oil] 1,000 MG capsule 1,000 mg PO HS Qty: 0 ascorbic acid (vitamin C) 500 MG tablet 500 mg PO QDAY Qty: 0 calcium carbonate-vitamin D3 [Calcium 600 with Vitamin D3] 600 MG/200 IU capsule 600 mg PO QDAY Qty: 0 cholecalciferol (vitamin D3) [Vitamin D3] 2,000 UNIT capsule 2,000 iu PO HS Qty: 0 meloxicam 15 mg Tablet 15 mg PO DAILY Follow up/Referrals: Oswaldo Campa MD [Primary Care Provider] - Ashlyn Larson MD [Physician] - As previously scheduled (Follow up w/ Britt Corado PA-C, on 08/21/2022 @ 2:20 pm at [facility] in [place].) Diet/Activity/Treatments Diet: Diet as Tolerated Activity: No deep bending or twisting at the waist. No lifting more than 10 pounds. Cold/Heat Therapy: Heating pad to back as needed for pain. Skin/Wound/Dressing Care Report to your healthcare provider any signs of infection, such as:: chills, fever, night sweats, unusual drainage and unusual redness Dressing: May shower. Keep dressing as dry as possible. If dressing becomes wet or dirty inside, may remove and replace with clean, dry gauze. No bathing or otherwise soaking incisions. Do not apply any creams, lotions, or ointments to incisions. Visit Report/Discharge Packet Instructions: DI for Prescription Opioid Use, DI for Transforaminal Lumbar Inte rbody Fusion Stand Alone Forms: Patient Portal/API, Stroke Signs & Symptoms, Surgery Discharge Discharge Data Primary Care Provider: Oswaldo Campa Quality VTE Deep Vein Thrombosis/Pulmonary Embolism Present on Admission: No
[2022-08-09] MEDS: MAGNESIUM HYDROXIDE 30 ML UDC PO (08:11)
[2022-08-09] MEDS: DOCUSATE 100 MG CAPSULE PO (08:11)
[2022-08-09 08:13] VITALS: BP 112/55; PULSE 80
[2022-08-09 08:35] VITALS: BP 112/55; PULSE 80; RESP 18; TEMP 37.1; O2SAT 98
--- NOTE | 2022-08-09 08:45 | PT.IPTN ---
Current Diagnoses Acute posthemorrhagic anemia (08/07/22) Spinal stenosis, lumbar region with neurogenic claudication (08/07/22) Arthrodesis status (08/07/22) Surgery Performed Operation Date: 08/07/22 08:45 Actual Procedures p L3-4 TLIF, L3-S1 PSF w. instrumentation(Not Applicable) - Ashlyn Larson MD Physical Therapy Treatment Note M2 PT-IP Current Condition Start: 08/07/22 18:36 Freq: NEEDED Status: Discharge Protocol: Document 08/08/22 15:54 SP (Rec: 08/08/22 19:21 SP [id number]) Physical Therapy Current Condition Current Condition Evaluation Date 08/07/22 Treatment Diagnosis s/p L3-4, L4-5, L5S1 instrum/ screw placement; TLIF; difficulty in walking Onset Date 08/07/22 M3 PT-IP Subjective Start: 08/07/22 18:36 Freq: NEEDED Status: Discharge Protocol: Document 08/09/22 08:42 AMB (Rec: 08/09/22 09:00 AMB [id number]) Subjective Physical Therapy Visit Type Type Treatment Note Visit Start Time 08:15 Visit Stop Time 08:30 Total Visit Minutes 15 Number of [employer]PER[employer] Visits 0 Physical Therapy Visit Comments Patient Comments agreeable to do PT Patient Goals Return home with daughter to assist her 10/02 when pain more controlled. Therapy Pain Assessment Pain When Pain Assessed During Mobility Pain Present Pain Present Pain Reported Location back Intensity 5 Scale Used 3/10 at rest, 4/10 with mobility. Description With Movement Pain Behaviors Facial Grimacing,Guarding Pain Management Techniques Distraction,Modification of Treatment,Re-positioning, Timing of Activity with Medications M4 PT-IP Mobility and Gait Start: 08/07/22 18:36 Freq: NEEDED Status: Discharge Protocol: Document 08/09/22 08:42 AMB (Rec: 08/09/22 09:00 AMB [id number]) PT-Transfer Assessment Sit to and From Stand Sit to and from Stand Contact Guard Assistance, Minimal Assistance,1 Person Assistance,Use of Upper Extremities Equipment Transfer Assistive Device Gait Belt,Front Wheeled Walker Orthotic/Prosthetic Devices or Brace: No Transfers Transfer Destination Chair,Toilet Transfer Technique pt ambulated w/ FWW Transfer Ability Level of Assist Minimal Assistance,1 Person Assistance,Use of Upper Extremities Comments Mobility Comments Pt in chair when arrived. RN noted pt did well getting from bed to chair but is having gas pains. Pt with pain with sit to stand, avoids hip flexion due to pain. Gait Assessment Gait Gait Assistance Required: Contact Guard Assist,1 Person Assist Distance (Feet) 50 Able to Maintain Weight Bearing Status Yes During Gait Assistive Devices Assistive Device Gait Belt,Front Wheeled Walker Orthotic/Prosthetic Devices or Brace: No Gait Deviations General Gait Pattern Antalgic,Decreased Stride Length,Decreased Feet Clearance,Lateral Trunk Lean Factors Limiting Gait Function Factors Limiting Gait Function Decreased Activity Tolerance, Decreased Strength,Limited Range of Motion,Pain,Poor Balance Comments Gait Comments Pt ambulated with FWW and CGA in hallway 50' total, was fatigued and became rather nauseous towards the end of treatment. Good understanding of precautions, but pain control challenging. M5 PT-IP Objective Assessments Start: 08/07/22 18:36 Freq: NEEDED Status: Discharge Protocol: Document 08/07/22 16:40 AB (Rec: 08/07/22 18:49 AB [id number]) Orientation Orientation/Cognition Level of Alertness Alert Orientation Name,Place,Situation Language Function Ability No Deficits Noted Safety Awareness Decreased Safety Awareness Memory Description Short Term Impaired Gross Range of Motion Lower Extremity ROM Assessment Within Functional Limits Strength Lower Extremity Strength Hip 4-/5 Knee 4-/5 Sensation Assessment Sensation Gross Sensation WNL Muscle Tone Muscle Tone WNL Yes M6 PT-IP Treatment Start: 08/07/22 18:36 Freq: NEEDED Status: Discharge Protocol: Document 08/09/22 08:42 AMB (Rec: 08/09/22 09:00 AMB [id number]) Physical Therapy Treatment Education Education Provided Precautions,Safety M7 PT-IP Assessment and Plan Start: 08/07/22 18:36 Freq: NEEDED Status: Discharge Protocol: Document 08/09/22 08:42 AMB (Rec: 08/09/22 09:00 AMB [id number]) PT Summary Assessment and Plan Potential Rehabilitation Potential Fair Status of Condition at Evaluation Evolving Summary Impairments Pain,ROM,Strength,Balance, Coordination,Sensation,Tone, Cognition,Bed Mobility, Transfers,Gait,Activity Tolerance Progress Towards Goals Slow Progress due to Pain,Slow Progress due to Activity Tolerance Assessment Summary CGA for gait, but [place] for sit to stand due to pain. Pt fatigued quickly but was able to tolerate more gait today than yesterday. Has daughter at home who has previously been trained and good awareness of precautions. Pt cleared to return home when medically stable. Goals Bed Mobility Goal Standby Assistance Transfer Goal Standby Assistance,Front Wheeled Walker Gait Goal Standby Assistance,Front Wheel Walker Gait Distance 150 Days to Meet Goals 5 Frequency of Treatment Frequency Of Treatment Discharge Treatment Plan Physical Therapy Treatment Plan Bed Mobility Training,Transfer Training,Gait Training, Therapeutic Exercise,Balance Retraining,Post Op Education, Discharge Planning,Hot or Cold Pack,Neuromuscular Re-ed, Coordination Retraining,Manual Therapy Precautions Lumbar Precautions Log Roll,No Twisting,Limit Bending,Lifting Restriction of 10 lbs,Gait Belt above Incisional Area Recommendations To Nursing Amount of Assist Needed 1 Person Assist Discharge Recommendations PT Discharge Recommendations Home with 10/02 Assist Available,Home Health Transportation Needs at Discharge Private Vehicle
--- NOTE | 2022-08-09 10:33 | OT.IP.TRT ---
Current Diagnoses Acute posthemorrhagic anemia (08/07/22) Spinal stenosis, lumbar region with neurogenic claudication (08/07/22) Arthrodesis status (08/07/22) Surgery Performed Operation Date: 08/07/22 08:45 Actual Procedures p L3-4 TLIF, L3-S1 PSF w. instrumentation(Not Applicable) - Ashlyn Larson MD Occupational Therapy Treatment Note M2 OT-IP Current Condition Start: 08/08/22 13:34 Freq: Status: Discharge Protocol: Document 08/08/22 09:13 [facility] (Rec: 08/08/22 13:54 [facility] [id number]) Occupational Therapy Current Condition Current Condition Evaluation Date 08/08/22 Treatment Diagnosis S/p L3-4, L3-S1 PSF Diagnosis Onset Date 08/07/22 Post Operative Precautions Lumbar Precautions Log Roll,No Twisting,Limit Bending,Lifting Restriction of 10 lbs,Gait Belt above Incisional Area M3 OT- IP Subjective and Pain Start: 08/08/22 13:34 Freq: Status: Discharge Protocol: Document 08/09/22 10:00 [facility] (Rec: 08/09/22 13:18 [facility] [id number]) OT- Subjective Occupational Therapy Visit Type Type Treatment Note Visit Start Time 10:00 Visit Stop Time 10:33 Total Visit Minutes 33 Occupational Therapy Visit Comments Patient Comments Pt agreed to shower and pt's daughter present for caregiver training. Patient/Caregiver Goals To go home. OT Pain Assessment Pain When Pain Assessed During Mobility Pain Present Pain Present Pain Reported M4 OT- IP ADL's Start: 08/08/22 13:34 Freq: Status: Discharge Protocol: Document 08/09/22 10:00 [facility] (Rec: 08/09/22 13:18 [facility] [id number]) OT [id number] Comments OT Self-Feeding Comments Not at meal time OT ADL-Grooming General Evaluation Grooming Ability Standby Assistance Areas Needing Assistance Retrieving/Set-up of Grooming Items Comments OT Grooming Comments While seated from the recliner . OT ADL-Dressing General Eval Lower Body Dressing Ability Moderate Assistance Comments OT Dressing Comments Assist to take her socks off and burton the brief over her hips. OT ADL-Bathing Bathing Type Bathing Type Shower General Evaluation Bathing Ability Moderate Assistance Areas Needing Assistance Retrieving/Setting Up Items, Wash/Dry Back,Wash/Dry Lower Extremities Comments OT Bathing Comments Assist for her legs and back. M6 OT- IP Functional Cognition Start: 08/08/22 13:34 Freq: Status: Discharge Protocol: Document 08/09/22 10:00 [facility] (Rec: 08/09/22 13:18 [facility] [id number]) Cognitive Factors Limiting Selfcare Function Cognitive Ability Level of Alertness Alert Patient Orientation Name,Place,Situation Attention Span Ability Capable of Focused Attention, Capable of Sustained Attention Ability to Follow Commands Able to Follow One Step Commands with Increased Time, Able to Follow One Step Commands with Repetition Safety Awareness No Deficits Noted Cognitive Comments Cognitive Assessment Comments Pt able to follow commands better for her back precautions. M7 OT- IP Mobility and Balance Start: 08/08/22 13:34 Freq: Status: Discharge Protocol: Document 08/09/22 10:00 [facility] (Rec: 08/09/22 13:18 [facility] [id number]) OT-Transfer Assessment Sit to and From Stand Sit to and from Stand Standby Assistance Transfers Transfer Ability Standby Assistance,Contact Guard Assistance Technique Transfer Destination Bed,Shower Stall Transfer Technique Stand Step Pivot Devices Transfer Assistive Devices Gait Belt,Front Wheeled Walker Comments Mobility Comments Pt cga to SBA to stand with FWW. Pt's daughter able to safely burton/doff the gait belt and able to assist pt for mobility and ADL needs. Pt to go home with 24/7 assist when medically stable. OT- Balance Assessment Sitting Balance and Reactions Static Sitting Balance Ability Normal Dynamic Sitting Balance Ability Good Standing Balance and Reactions Static Standing Balance Ability Good Dynamic Standing Balance Ability Fair M9 OT- IP Assessment and Plan Start: 08/08/22 13:34 Freq: Status: Discharge Protocol: Document 08/09/22 10:00 [facility] (Rec: 08/09/22 13:18 [facility] [id number]) OT Summary Assessment and Plan Potential Rehabilitation Potential Good Analytic Complexity at Evaluation Low Summary OT Impairments Pain,Balance,Functional Cognition,Functional Mobility, Grooming,Dressing,Toileting, Bathing,Toilet Transfers, Shower Transfers,Activity Tolerance Progress Towards Goals Progressing Toward Goals Assessment Summary Pt's daughter able to complete caregiver training for all ADL and mobility need and able to show good understanding and safety. Pt's daughter to assist pt at home. Goals Grooming Goal Independent Dressing Goal Independent Toileting Goal Independent Bathing Goal Independent Toilet Transfer Goal Independent Shower Transfer Goal Independent Patient/Caregiver Education Goal Caregiver Independent Assisting Patient Days to Meet Goals 2 Frequency of Treatment Frequency Of Treatment Once a Day Treatment Plan OT Treatment Plan ADL Training,Functional Mobility,Patient/Family Education,Discharge Planning Discharge Recommendations OT Discharge Recommendations Home with 10/02 Assist Available Home Equipment Needs shower chair Transportation Needs at Discharge Private Vehicle
[2022-08-09] MEDS: CYCLOBENZAPRINE 10 MG TABLET 5 MG PO (10:57)
--- NOTE | 2022-08-09 12:20 | PC.NURSE ---
Day shift: Paperwork signed and all questions answered. Pt has all personal belongings. scripts sent electronic to Pt's pharmacy. Pt's Daughter in room for support and the teachings. Dressing remains CDI and was reinforced just prior to d/c. Taken to car via WC at approx 1220 by HERLINDA Jorge. Pt's Daughter is driving her home.
== END 2022-08-09 12:23 | disposition home health service (06) | DRG 454 ==
PROVIDERS: Admitting Provider Orthopaedic Surgery Orthopaedic Surgery of the Spine; PCP Internal Medicine; Referring Provider Orthopaedic Surgery Orthopaedic Surgery of the Spine; Visit Provider Orthopaedic Surgery Orthopaedic Surgery of the Spine
PROC: 0SG00AJ Fusion of Lumbar Vertebral Joint with Interbody Fusion Device, Posterior Approach, Anterior Column, Open Approach (ICD-10-PCS; principal; 2022-08-07 08:45)
DX: M48.062 Spinal stenosis, lumbar region with neurogenic claudication (principal); D62 Acute posthemorrhagic anemia; M96.0 Pseudarthrosis after fusion or arthrodesis; M96.1 Postlaminectomy syndrome, not elsewhere classified; Z98.1 Arthrodesis status; Z20.822 Contact with and (suspected) exposure to COVID-19
CPT/HCPCS: 36415; 72100; 76000; 82962; 85014; 85018; 87635; 97116; 97162; 97165; 97530; 97535; C9803; C9290; J0330; J0690; J1100; J1170; J2405; J2704; J3010